=== PATIENT | female | born 1980 | race Hispanic/Latino ===

== ENCOUNTER → 2021-01-22 11:03 | Outpatient (CLI) | payer OTHER, SELFPAY ==
[2021-01-22 13:38] LABS: TSH w/ Reflex to FT4 2.11 uIU/mL (0.47-4.68)
== END ==
PROVIDERS: Referring Provider Obstetrics & Gynecology; Visit Provider Obstetrics & Gynecology
DX: K59.01 Slow transit constipation (principal)
CPT/HCPCS: 36415; 84443